=== PATIENT | male | born 1950 | race Caucasian/White ===

== ENCOUNTER 2022-09-09 15:03 | Emergency (ER) | payer MEDICARE, SELFPAY ==
[2022-09-09 15:20] VITALS: BP 157/88; PULSE 68; RESP 16; TEMP 35.9; O2SAT 99
--- NOTE | 2022-09-09 15:39 | ED.NEUROSD ---
HPI - Neuro Symptoms/Deficit General Chief Complaint: Suspected CVA Stated Complaint: left side facial drooping Time Seen by Provider: 09/09/22 15:25 Source: patient and RN notes reviewed History of Present Illness HPI Narrative: patient is a 72-year-old male who presents to the Urgent Care with complaints of left-sided facial droop for the last 2 days. Patient states he woke up with increased droopiness this morning. Denies any weakness, neuro deficits, confusion. Reports of some increased facial numbness this morning. Patient states he was sick last week. No other acute complaints. No acute distress noted. Patient aware of the plan of care. Some parts of this dictation were generated by voice recognition software and may contain typographical and/or grammatical inaccuracies. Related Data Home Medications Medication Instructions Recorded Confirmed atorvastatin 40 mg tablet mg 09/09/22 carvedilol 25 mg tablet mg 09/09/22 glimepiride 4 mg tablet mg 09/09/22 hydroxychloroquine 200 mg tablet mg PO 09/09/22 isosorbide mononitrate 30 mg mg PO 09/09/22 tablet,extended release 24 hr losartan 50 mg tablet mg 09/09/22 metformin 500 mg tablet mg 09/09/22 Allergies Allergy/AdvReac Type Severity Reaction Status Date / Time No Known Allergies Allergy Verified 09/09/22 15:18 Review of Systems Review of Systems: CONSTITUTIONAL: Denies fever, chills, or sweats. EYES: Denies visual changes, redness, or discharge. ENT: Denies rhinorrhea, congestion, sore throat, or otalgia. CARDIOVASCULAR: Denies chest pain, palpitations, or edema. RESPIRATORY: Denies cough or dyspnea. GASTROINTESTINAL: Denies abdominal pain, nausea, vomiting, or diarrhea. GENITOURINARY: Denies dysuria or hematuria. SKIN: Denies rash or itching. MUSCULOSKELETAL: Denies back pain, joint pain, or myalgia. NEUROLOGIC: Reports of left-sided facial weakness/droop All other systems reviewed are negative, except as documented in HPI. PMFSH Comments At the time of my signature, I reviewed and agree with the nursing past medical, surgical, social, and family history. There is no relevant family history pertinent to the patient complaint. Exam Narrative: GENERAL: This is a well-nourished, well-developed patient, in no apparent distress. HEAD: normocephalic, atraumatic. EYES: PERRL. Sclera clear/white. Vision is grossly intact. EARS: External ears normal NOSE: External nose normal with no obvious nasal discharge, nares without redness, no rhinorrhea. THROAT: Mucous membranes moist NECK: Neck supple CARDIOVASCULAR: Regular rate and rhythm without murmurs, gallops, or rubs. RESPIRATORY: Clear to auscultation. Breath sounds equal bilaterally. No wheezes, rales, or rhonchi. SKIN: warm, intact with no suspicious lesions or rash, good texture and turgor. NEURO: equal back gray cloth washer/strength to bilateral upper and lower extremities. paralysis to the left facial nerve. Asymmetrical smile with left deficit. EXTREMITIES: No clubbing, cyanosis, or edema. Course Course Level of Care: Express Care Visit Vital Signs Vital signs: Vital Signs Temperature 96.7 F L 09/09/22 15:20 Pulse Rate 68 09/09/22 15:20 Respiratory Rate 16 09/09/22 15:20 Blood Pressure 157/88 H 09/09/22 15:20 Pulse Oximetry 99 09/09/22 15:20 Oxygen Delivery Room Air 09/09/22 15:20 Temperature 96.7 F L 09/09/22 15:20 Pulse Rate 68 09/09/22 15:20 Respiratory Rate 16 09/09/22 15:20 Blood Pressure 157/88 H 09/09/22 15:20 Pulse Oximetry 99 09/09/22 15:20 Oxygen Delivery Room Air 09/09/22 15:20 reviewed- Patient is informed that they may have pre-hypertension or hypertension based on a blood pressure reading in the department. I recommend the patient call the primary care provider listed on their discharge instructions or a physician of their choice this week to arrange follow-up for further evaluation of possible pre-hypertension or hypertension. Transfe
== END 2022-09-09 16:01 | disposition short-term general hospital (02) ==
PROVIDERS: Emergency Provider Nurse Practitioner Family
DX: R29.810 Facial weakness (principal); E78.00 Pure hypercholesterolemia, unspecified; I10 Essential (primary) hypertension; E11.9 Type 2 diabetes mellitus without complications
CPT/HCPCS: 99212; G0463